=== PATIENT | male | born 1970 | race American Indian/Alaskan Native ===

== ENCOUNTER 2018-06-08 20:37 | Emergency (ER) | payer OTHER ==
[2018-06-08] MEDS ORDERED: CATAPRES PO ONE (21:26)
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
--- NOTE | 2018-06-08 22:43 | XRay Report ---
PROCEDURE: XR SPINE LUMBOSACRAL 2-3V TECHNIQUE: Lumbar spine radiographs, AP and lateral views. HISTORY: low back pain COMPARISONS: None . FINDINGS: Alignment: Normal . Vertebral body heights/Disk spaces: Normal . Fracture(s): None . Facets: Normal . Bone mineralization: Normal . IMPRESSION: Normal Examination . This document is electronically signed by Mia Leong DO., June 08 2018 10:40:50 PM ET
--- NOTE | 2018-06-08 23:30 | XRay Report ---
PROCEDURE: XR SPINE CERVICAL 2-3V TECHNIQUE: Cevical spine, views. HISTORY: neck pain COMPARISONS: None . FINDINGS: Prevertebral soft tissues: Normal . Alignment: There is straightening of the cervical spine . Vertebral body heights/Disk spaces: Normal . Fracture(s): None . Facets: Normal . Bone mineralization: Normal . IMPRESSION: Straightening of the cervical spine is most likely secondary to spasm No acute abnormality. This document is electronically signed by Xavier Jarvis MD., June 08 2018 11:27:35 PM ET
[2018-06-09 00:36] VITALS: BP 136/85
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
== END 2018-06-09 02:26 | disposition home or self-care (01) ==
LOC: ED 20:37
DX: M54.2 Cervicalgia (principal); M54.5 Low back pain; R10.2 Pelvic and perineal pain; I10 Essential (primary) hypertension; V49.40XA Driver injured in collision with unspecified motor vehicles in traffic accident, initial encounter; Y93.89 Activity, other specified; Y92.488 Other paved roadways as the place of occurrence of the external cause; Y99.8 Other external cause status
CPT/HCPCS: 72040; 72100; 99283